=== PATIENT | male | born 1960 | race Caucasian/White ===

== ENCOUNTER 2024-05-31 00:17 | Emergency (ER) | payer BC, OTHER ==
[2024-05-31] MEDS ORDERED: Orphenadrine Citrate 60 MG/2 ML VIAL ONE (01:09)
== END 2024-05-31 01:54 ==
LOC: NAV ERS 00:17 → EEVIPCON 00:17 → NAV ERS 01:54
DX: M54.50 Low back pain, unspecified (principal); I10 Essential (primary) hypertension
CPT/HCPCS: 72131; 96372; J2360